=== PATIENT | male | born 1965 | race Caucasian/White ===

== ENCOUNTER 2016-07-18 07:55 | Day surgery (SDC) ==
--- NOTE | 2016-07-17 12:11 | EKG Report ---
Test Performed on : 07/17/2016 11:47:22 AM Test Reason : PAT Blood Pressure : / mmHG Vent. Rate : 087 BPM Atrial Rate : 087 BPM P-R Int : 186 ms QRS Dur : 106 ms QT Int : 372 ms P-R-T Axes : 062 -83 083 degrees QTc Int : 447 ms Normal sinus rhythm. Left axis deviation T wave abnormality, consider lateral ischemia Abnormal ECG No previous ECGs available Confirmed by Prabhjot SAWYER, Marcelino Anderson ([id number]) on 07/19/2016 1:14:52 PM
[2016-07-18] MEDS ORDERED: LR 1,000 ML ONE ×2 (08:08→16:28)
[2016-07-18] MEDS ORDERED: KEFZOL 1 GM/D5W 50 ML ONE (08:08)
[2016-07-18] MEDS ORDERED: PEPCID ONE (09:29)
[2016-07-18] MEDS ORDERED: REGLAN ONE (09:29)
[2016-07-18] MEDS ORDERED: MARCAINE 0.25% PF/EPI 1:200,000 ONE (10:04)
[2016-07-18] MEDS ORDERED: DIPRIVAN 1% 100 ML IV SCH (12:15)
[2016-07-18] MEDS ORDERED: DIPRIVAN 1% 0 ML ONE (12:18)
[2016-07-18 12:24] LABS: ALLEN TEST YES; BLOOD TYPE ARTERIAL; DRAW SITE R RADIAL; METHB 1.7 % (0.0-1.5); O2(CT) 19.8 mL/dL (15.0-23.0); PO2(98.6) 109 mmHg (60-100); SAMPLE BLOOD; SAO2 98.8 % (95.0-100.0); SRATE 12 BPM; THB 15.2 g/dL (11.5-17.4); TVOL 600 mL
[2016-07-18 12:26] LABS: pH(98.6) 7.02 (7.35-7.45)
[2016-07-18 12:27] LABS: MODALITY VENTILATOR; PCO2(98.6) 105 mmHg (35-45)
--- NOTE | 2016-07-18 12:38 | Diag Imaging Result Document ---
PROCEDURE NAME: CHEST-PORTABLE - 07/18/2016 SINGLE FRONTAL RADIOGRAPH OF THE CHEST: COMPARISON: None available. FINDINGS: There is an ET tube that projects over the trachea and above the cecilia at about the T3 level. There are increased central vascular markings suggesting mild pulmonary venous congestion. The lungs are grossly clear, otherwise. There is no evidence of pneumothorax or pleural fluid collection. Cardiac silhouette is grossly unremarkable. IMPRESSION: 1. Newly placed the ET tube as described. 2. Increased central vascular markings suggesting mild pulmonary venous congestion.
[2016-07-18] MEDS ORDERED: DUONEB (A & A) INH ONE (13:00)
[2016-07-18] MEDS ORDERED: DIPRIVAN 1% 100 ML ONE ×2 (13:20→15:08)
[2016-07-18 13:31] LABS: ALLEN TEST YES; BLOOD TYPE ARTERIAL; DRAW SITE R RADIAL; METHB 1.6 % (0.0-1.5); O2(CT) 19.6 mL/dL (15.0-23.0); PO2(98.6) 233 mmHg (60-100); SAMPLE BLOOD; SAO2 100.5 % (95.0-100.0); THB 14.3 g/dL (11.5-17.4)
[2016-07-18 13:32] LABS: pH(98.6) 7.13 (7.35-7.45)
[2016-07-18 13:33] LABS: MODALITY VENTILATOR; PCO2(98.6) 75 mmHg (35-45)
[2016-07-18 13:56] LABS: BE -5.4 mmoll (-3.0-3.0); BLOOD TYPE ARTERIAL; METHB 1.7 % (0.0-1.5); O2(CT) 18.5 mL/dL (15.0-23.0); PO2(98.6) 128 mmHg (60-100); SAMPLE BLOOD; SAO2 99.9 % (95.0-100.0); THB 13.8 g/dL (11.5-17.4)
[2016-07-18 13:58] LABS: MODALITY VENTILATOR; PCO2(98.6) 67 mmHg (35-45); pH(98.6) 7.17 (7.35-7.45)
[2016-07-18 13:59] LABS: ALLEN TEST YES; DRAW SITE R RADIAL
--- NOTE | 2016-07-18 14:03 | OPERATIVE NOTE ---
PROCEDURE DATE: 07/18/2016 PREOPERATIVE DIAGNOSIS: Paraumbilical hernia. POSTOPERATIVE DIAGNOSIS: Paraumbilical hernia. PROCEDURE PERFORMED: Open repair of paraumbilical hernia. SURGEON: Demetrius Muro MD ANESTHESIA: General. ESTIMATED BLOOD LOSS: 3 mL. COMPLICATIONS: None apparent. SPECIMENS: None. FINDINGS: Small, 1.5 to 2 cm, paraumbilical hernia defect. TECHNIQUE: The patient was brought to the operating room and placed supine on the table. General anesthesia was induced. He was prepped and draped in usual sterile fashion. Marcaine 0.25% with epinephrine she has anesthetize the skin incisions. An incision was made a couple centimeters above the umbilicus and carried down through the dermis with a knife. Dissection was carried down to the fascia with cautery around the herniating preperitoneal fat. The edges of the fascia were delineated all the way around the edges of the defect. The hernia sac was dissected free. The preperitoneal fat was tucked back down below the fascia. A 4.3 cm dual layered circular mesh was then placed under the fascia on top of the fat. It was anchored to the fascia with interrupted horizontal mattress 0 Ti-Cron sutures at 12 o'clock, 3 o'clock, 6 o'clock, and 9 o'clock, with another 1 in between each of these quadrants. The fascia was then closed over the mesh with 2 interrupted [id number] 0 Ti-Cron. The subcutaneous tissue was then closed over the mesh with interrupted 3-0 Vicryl. The skin was closed with running 4-0 subcuticular Monocryl and Steri- Strips. There were no apparent complications. He was awakened in stable condition and transferred to the recovery room.
[2016-07-18 14:49] LABS: ALLEN TEST YES; BE -4.1 mmoll (-3.0-3.0); BLOOD TYPE ARTERIAL; DRAW SITE R RADIAL; METHB 1.7 % (0.0-1.5); O2(CT) 18.1 mL/dL (15.0-23.0); PO2(98.6) 132 mmHg (60-100); SAMPLE BLOOD; THB 13.5 g/dL (11.5-17.4); pH(98.6) 7.23 (7.35-7.45)
[2016-07-18 14:51] LABS: MODALITY VENTILATOR; PCO2(98.6) 58 mmHg (35-45)
[2016-07-18] MEDS ORDERED: DIPRIVAN 1% ONE (15:22)
[2016-07-18] MEDS ORDERED: FENTANYL ONE (15:23)
[2016-07-18 15:34] LABS: ALLEN TEST YES; BE -4.2 mmoll (-3.0-3.0); METHB 1.4 % (0.0-1.5); O2(CT) 18.1 mL/dL (15.0-23.0); PO2(98.6) 71 mmHg (60-100); SAMPLE BLOOD; SAO2 97.7 % (95.0-100.0); pH(98.6) 7.25 (7.35-7.45)
[2016-07-18 15:35] LABS: DRAW SITE R RADIAL; PCO2(98.6) 54 mmHg (35-45)
[2016-07-18 15:36] LABS: BLOOD TYPE ARTERIAL; MODALITY VENTILATOR
[2016-07-18] MEDS ORDERED: LR 500 ML ONE (15:50)
[2016-07-18] MEDS ORDERED: NORCO-7.5 PO PRN (16:26)
[2016-07-18] MEDS ORDERED: ZOFRAN IV PRN ×2 (16:26→17:10)
[2016-07-18] MEDS ORDERED: ENLON ONE (16:28)
[2016-07-18] MEDS ORDERED: XYLOCAINE-MPF 2% ONE (16:28)
[2016-07-18] MEDS ORDERED: NEOSTIGMINE ONE (16:28)
[2016-07-18] MEDS ORDERED: ROBINUL ONE (16:28)
[2016-07-18] MEDS ORDERED: NORCURON ONE (16:28)
[2016-07-18] MEDS ORDERED: QUELICIN (DOSE) ONE (16:28)
[2016-07-18] MEDS ORDERED: NS 1,000 ML ONE (16:58)
[2016-07-18] MEDS ORDERED: BUPRENEX IV PRN (17:10)
[2016-07-18] MEDS: NS 1,000 ML IV SCH (19:00)
[2016-07-18] MEDS: NORCO-10 PO PRN ×2 (19:02→23:25)
[2016-07-18] MEDS: DUONEB (A & A) INH SCH (21:03)
[2016-07-18] MEDS: NEURONTIN PO SCH (21:51)
[2016-07-18] MEDS: PERIDEX MT SCH (21:51)
[2016-07-19] MEDS: DUONEB (A & A) INH SCH ×2 (03:48→09:41)
[2016-07-19] MEDS: NORCO-10 PO PRN ×2 (04:02→08:45)
[2016-07-19] MEDS: NS 1,000 ML IV SCH (06:26)
[2016-07-19 08:43] VITALS: BP 139/84
[2016-07-19] MEDS: PERIDEX MT SCH (08:45)
[2016-07-19] MEDS: NEURONTIN PO SCH (08:46)
[2016-07-19] MEDS ORDERED: NORVASC PO SCH (09:00)
[2016-07-19 09:45] LABS: ALLEN TEST YES; BE -0.8 mmoll (-3.0-3.0); BLOOD TYPE ARTERIAL; DRAW SITE L RADIAL; METHB 1.3 % (0.0-1.5); O2(CT) 18.8 mL/dL (15.0-23.0); PCO2(98.6) 37 mmHg (35-45); PO2(98.6) 68 mmHg (60-100); SAMPLE BLOOD; SAO2 99.1 % (95.0-100.0); THB 14.2 g/dL (11.5-17.4); pH(98.6) 7.41 (7.35-7.45)
[2016-07-19 09:46] LABS: MODALITY CANNULA
== END 2016-07-19 12:23 | disposition home or self-care (01) ==
LOC: OPS 07:55 → UNDOADMOB 16:04 → 4N 16:04 → UNDODISOB 07-19 12:23 → OPS 07-19 12:23
PROVIDERS: ATTEND Surgery
DX: K42.9 Umbilical hernia without obstruction or gangrene (principal); J95.821 Acute postprocedural respiratory failure; C91.10 Chronic lymphocytic leukemia of B-cell type not having achieved remission; Z82.49 Family history of ischemic heart disease and other diseases of the circulatory system; K21.9 Gastro-esophageal reflux disease without esophagitis; F17.210 Nicotine dependence, cigarettes, uncomplicated; M19.90 Unspecified osteoarthritis, unspecified site; Z79.899 Other long term (current) drug therapy; Z83.3 Family history of diabetes mellitus
CPT/HCPCS: 71010; 82805; 93005; 93010; 94002; 94640; 94761; 94799; C1781; J0330; J0690; J3010; J7030; J7120; J2710